=== PATIENT | male | born 1995 | race Caucasian/White ===

== ENCOUNTER 2020-06-18 20:00 | Emergency (ER) | payer OTHER ==
[~2020-06-18] VITALS: Ht 177.8 cm; Wt 105.7 kg
[2020-06-18] MEDS ORDERED: ACETAMINOPHEN PO (20:08)
[2020-06-18] MEDS ORDERED: ADVIL200 M1 PO (20:08)
[2020-06-18 21:52] LABS: ABSOLUTE NEUTROPHILS 13.7 thou/uL (1.4-8.2); BASOPHILS 0.1 % (0.0-2.0); HEMATOCRIT 40.2 % (42.0-52.0); HEMOGLOBIN 13.6 gm/dL (14.0-18.0); LYMPHOCYTES 3.4 % (24.0-44.0); MCH 29.7 pg (26.0-34.0); MCHC 33.9 g/dL (28.0-37.0); MCV 87.7 fL (80.0-100.0); MONOCYTES 7.4 % (1.0-8.0); PLATELET COUNT 242 thou/uL (150-400); POLYS 89.1 % (36.0-66.0); RBC 4.58 mil/uL (4.50-6.00); RDW 12.9 % (10.5-14.5); WBC 15.4 thou/uL (4.0-11.0)
[2020-06-18 22:01] LABS: CALCIUM 9.3 mg/dL (8.5-10.1); CREATININE 1.1 mg/dL (0.7-1.3); POTASSIUM 3.9 mmol/L (3.5-5.1)
[2020-06-18 22:07] LABS: ALBUMIN 4.1 g/dL (3.4-5.0); TOTAL BILIRUBIN 0.5 mg/dL (0.2-1.0)
[2020-06-18 23:46] LABS: URINE BILIRUBIN NEGATIVE (Negative); URINE BLOOD NEGATIVE (Negative); URINE CLARITY CLEAR; URINE COLOR YELLOW; URINE GLUCOSE-RANDOM* NEGATIVE (Negative); URINE KETONES NEGATIVE (Negative); URINE LEUKOCYTES-REFLEX NEGATIVE (Negative); URINE NITRITE-REFLEX NEGATIVE (Negative); URINE PROTEIN (DIPSTICK) NEGATIVE (Negative); URINE UROBILINOGEN 0.2 E.U./dl (0.2-1.0)
[2020-06-19 00:05] VITALS: BP 94/32
--- NOTE | 2020-06-19 12:18 | EKG ---
[address] [address] ELECTROCARDIOGRAM REPORT Name: LOLA HODGES Room #: [facility]#: [id number] Admission: 06/18/20 Attend Phys: Discharge: 06/19/20 Date of : [birth year] Report #: [id number] [facility] ED Test Date: 2020-06-18 Test Time: 20:12:00 Pat Name: LOLA DILLARD Department: Room: Gender: Loss Prevention Consultant: [facility] : 1995 Requested By: Jarek Chin Order Number: [id number] MD: Adán Villafana Measurements Intervals [place] Rate: 127 P: 32 DC: 150 QRS: 43 QRSD: 83 T: 22 QT: 304 QTc: 442 Interpretive Statements Sinus tachycardia No previous ECG available for comparison Electronically Signed On 06-19-2020 12:18:04 [employer] by Adán Villafana [email or web address] <ELECTRONICALLY SIGNED> By: Adán Villafana MD, [facility] 06/19/20 1218 11 11 Adán Villafana MD, FACC /EPI
== END 2020-06-19 00:08 | disposition home or self-care (01) ==
LOC: ER 20:00
PROVIDERS: Emergency Medicine
DX: J02.9 Acute pharyngitis, unspecified (principal); Z20.828 Contact with and (suspected) exposure to other viral communicable diseases; R19.7 Diarrhea, unspecified; R50.9 Fever, unspecified